=== PATIENT | male | born 1960 | race Hispanic/Latino ===

== ENCOUNTER 2018-09-27 14:26 | Outpatient (CLI) | payer MEDICARE ==
--- NOTE | 2018-09-27 16:08 | RAD ---
ADULT SKELETAL BONE SURVEY: History: Staging of multiple myeloma. FINDINGS: Lateral view skull, AP and lateral views cervical spine, AP and lateral views thoracic spine, AP and lateral views lumbar, AP view upper and lower extremities, hands and feet, as well as AP view pelvis. Images demonstrate no evidence of lucency to suggest osseous masses or lesions. No myelomatous lesion s seen on plain film radiography. IMPRESSION: No obvious evidence of osseous lesions seen on plain film radiography. POS: [facility]
== END 2018-09-27 14:27 | disposition home or self-care (01) ==
LOC: BICRAD 14:26
PROVIDERS: ATTEND Internal Medicine Medical Oncology
DX: D47.2 Monoclonal gammopathy (principal)
CPT/HCPCS: 77075; 80053; 82248; 82728; 83615; 83883; 84100; 84165; 84550; 85046

== ENCOUNTER 2020-11-03 02:48 | Inpatient (IN) | payer MEDICARE ==
[2020-11-03 03:48] LABS: Troponin I 0.119 ng/mL (< 0.028)
[2020-11-03] MEDS ORDERED: Ondansetron ODT 4 MG TAB SL PRN (08:00)
[2020-11-03] MEDS ORDERED: Acetaminophen 325 MG TAB PO PRN (08:00)
[2020-11-03] MEDS ORDERED: Ondansetron PF 4 MG/2 ML Vial IVP PRN (08:00)
[2020-11-03 08:18] VITALS: BMI 26.9
[2020-11-03] MEDS ORDERED: Dextrose 5% in Water 1,000 ML IV PRN (08:42)
[2020-11-03] MEDS ORDERED: Insulin Regular 300 UNITS/3 ML VIAL SC PRN (08:42)
[2020-11-03] MEDS ORDERED: Dextrose 50% Abboject 50 ML SYRINGE SLOW IVP PRN (08:42)
[2020-11-03] MEDS ORDERED: EPOETIN ALFA-EPBX (ESRD) 10,000 UNIT/ML VIAL SC SCH (09:00)
[2020-11-03] MEDS ORDERED: Furosemide 40 MG TAB PO SCH (09:00)
[2020-11-03] MEDS: hydrALAZINE 25 MG TAB PO SCH ×3 (09:46→21:36)
[2020-11-03] MEDS: Aspirin Chewable 81 MG TAB PO SCH (09:46)
[2020-11-03] MEDS: Heparin 5,000 UNITS/ML VIAL SC SCH ×2 (09:46→21:36)
[2020-11-03 11:20] LABS: #Eosinphils 0.2 thou/uL (0.0-0.7); #Lymphocytes 1.2 thou/uL (1.20-3.40); #Neutrophils 8.3 thou/uL (1.40-6.50); %Basophils 0.3 % (0.0-1.0); %Eosinophils 1.7 % (0.0-10.0); %Lymphocytes 10.8 % (21.0-51.0); %Monocytes 9.5 % (0.0-10.0); %Neutrophils 77.7 % (42.0-75.0); Hemoglobin 6.8 g/dL (14.0-18.0); Mean Corpuscular Hemoglobin 27.2 pg (27.0-31.0); Mean Corpuscular Volume 84.9 fL (78.0-98.0); Mean Platelet Volume 8.1 fL (7.4-10.4); Platelet Count 200 thou/uL (130-400); RBC Distribution Width 15.1 % (11.5-14.5); Red Blood Cell (RBC) Count 2.48 mill/uL (4.70-6.10); White Blood Cell (WBC) Count 10.6 thou/uL (4.8-10.8)
[2020-11-03 11:46] LABS: Anion Gap 22 mmol/L (10-20); BUN (Urea Nitrogen) 79 mg/dL (8.4-25.7); Calc. Creatinine Clearance 8 mL/min (70-130); Calcium 8.5 mg/dL (7.8-10.44); Carbon Dioxide 15 mmol/L (23-31); Chloride 101 mmol/L (98-107); Glucose 123 mg/dL (80-115); Magnesium 2.9 mg/dL (1.6-2.6); Potassium 4.3 mmol/L (3.5-5.1); Sodium 134 mmol/L (136-145)
[2020-11-03 12:05] LABS: CKMB 2.7 ng/mL (0-6.6)
[2020-11-03] MEDS: Isosorbide Dinitrate 20 MG TAB PO SCH ×2 (13:08→21:36)
[2020-11-03] MEDS: Furosemide 40 MG/4 ML VIAL SLOW IVP SCH (13:08)
[2020-11-03] MEDS: cloNIDine 0.1 MG TAB PO SCH ×2 (13:11→21:35)
[2020-11-03 17:25] LABS: CKMB 2.4 ng/mL (0-6.6)
[2020-11-03] MEDS ORDERED: Atorvastatin Calcium 40 MG TAB PO SCH (21:00)
[2020-11-04 03:11] LABS: Hep B Core Total Ab Non-Reactive (NonReactive); Hep B Core Total Index 0.06 S/CO (0-0.79)
[2020-11-04 03:12] LABS: HBSAB Concentration Less than 8.00 mIU/mL; HBSAg Index 0.21 S/CO (0-0.99); Hep B Surf AB Non-Reactive (NonReactive); Hep B Surf Ag Non-Reactive S/CO (NonReactive); Hep C IgG Ab Non-Reactive (NonReactive); Hep C Index 0.11 S/CO (0-0.79)
[2020-11-04 03:43] LABS: INR-International Normal Ratio 1.3; Prothrombin Time 16.1 sec (12.0-14.7)
[2020-11-04 03:45] LABS: #Eosinphils 0.3 thou/uL (0.0-0.7); #Lymphocytes 0.7 thou/uL (1.20-3.40); #Monocytes 0.7 thou/uL (0.11-0.59); #Neutrophils 4.7 thou/uL (1.40-6.50); %Basophils 0.7 % (0.0-1.0); %Eosinophils 4.3 % (0.0-10.0); %Lymphocytes 11.2 % (21.0-51.0); %Monocytes 10.3 % (0.0-10.0); %Neutrophils 73.6 % (42.0-75.0); Hemoglobin 5.6 g/dL (14.0-18.0); Mean Corpuscular HGB CONC 32.8 g/dL (32.0-36.0); Mean Corpuscular Hemoglobin 27.9 pg (27.0-31.0); Mean Corpuscular Volume 85.1 fL (78.0-98.0); Mean Platelet Volume 7.6 fL (7.4-10.4); Platelet Count 158 thou/uL (130-400); RBC Distribution Width 14.8 % (11.5-14.5); Red Blood Cell (RBC) Count 2.01 mill/uL (4.70-6.10); White Blood Cell (WBC) Count 6.4 thou/uL (4.8-10.8)
[2020-11-04 03:48] LABS: Anion Gap 21 mmol/L (10-20); BUN (Urea Nitrogen) 86 mg/dL (8.4-25.7); Calc. Creatinine Clearance 7 mL/min (70-130); Calcium 8.2 mg/dL (7.8-10.44); Carbon Dioxide 15 mmol/L (23-31); Chloride 103 mmol/L (98-107); Glucose 85 mg/dL (80-115); Iron 31 ug/dL (65-175); Iron Binding Capacity, Total 218 mcg/dL (261-462); Potassium 4.3 mmol/L (3.5-5.1); Sodium 135 mmol/L (136-145)
[2020-11-04] MEDS ORDERED: Heparin 10,000 UNITS/ 10 ML VIAL ONE (08:33)
[2020-11-04] MEDS ORDERED: NIFEdipine XL 30 MG TAB PO SCH (09:00)
[2020-11-04] MEDS ORDERED: EPOETIN ALFA-EPBX (ESRD) 10,000 UNIT/ML VIAL SC SCH (09:00)
[2020-11-04] MEDS ORDERED: Tuberculin PPD 0.1 ML VIAL I-DERMAL SCH ×2 (10:00→10:30)
[2020-11-04 10:26] LABS: Hemoglobin 6.9 g/dL (14.0-18.0); Platelet Count 155 thou/uL (130-400)
[2020-11-04] MEDS: Aspirin Chewable 81 MG TAB PO SCH (10:41)
[2020-11-04] MEDS: cloNIDine 0.1 MG TAB PO SCH ×3 (10:41→20:21)
[2020-11-04] MEDS: hydrALAZINE 25 MG TAB PO SCH ×3 (10:41→20:22)
[2020-11-04] MEDS: Furosemide 40 MG/4 ML VIAL SLOW IVP SCH ×2 (10:44→17:23)
[2020-11-04] MEDS: Isosorbide Dinitrate 20 MG TAB PO SCH ×3 (10:44→20:21)
[2020-11-04] MEDS: Heparin 5,000 UNITS/ML VIAL SC SCH ×2 (10:47→20:23)
[2020-11-04] MEDS ORDERED: CEFAZOLIN 2 GM in Premix Bag 1 BAG IVPB SCH (13:00)
[2020-11-04] MEDS: EPOETIN ALFA-EPBX (ESRD) 10,000 UNIT/ML VIAL IVP SCH (14:46)
[2020-11-04] MEDS: Atorvastatin Calcium 10 MG TAB PO SCH (20:21)
[2020-11-05 03:37] LABS: #Eosinphils 0.3 thou/uL (0.0-0.7); #Lymphocytes 0.7 thou/uL (1.20-3.40); #Monocytes 0.8 thou/uL (0.11-0.59); #Neutrophils 4.7 thou/uL (1.40-6.50); %Basophils 0.3 % (0.0-1.0); %Eosinophils 4.8 % (0.0-10.0); %Lymphocytes 10.9 % (21.0-51.0); %Monocytes 12.7 % (0.0-10.0); %Neutrophils 71.3 % (42.0-75.0); Hemoglobin 8.5 g/dL (14.0-18.0); Mean Corpuscular HGB CONC 32.4 g/dL (32.0-36.0); Mean Corpuscular Hemoglobin 27.6 pg (27.0-31.0); Mean Corpuscular Volume 85.1 fL (78.0-98.0); Mean Platelet Volume 7.2 fL (7.4-10.4); Platelet Count 140 thou/uL (130-400); RBC Distribution Width 13.7 % (11.5-14.5); Red Blood Cell (RBC) Count 3.06 mill/uL (4.70-6.10); White Blood Cell (WBC) Count 6.5 thou/uL (4.8-10.8)
[2020-11-05 03:56] LABS: Anion Gap 17 mmol/L (10-20); BUN (Urea Nitrogen) 57 mg/dL (8.4-25.7); Calc. Creatinine Clearance 10 mL/min (70-130); Calcium 8.3 mg/dL (7.8-10.44); Carbon Dioxide 22 mmol/L (23-31); Chloride 102 mmol/L (98-107); Glucose 100 mg/dL (80-115); Potassium 3.9 mmol/L (3.5-5.1); Sodium 137 mmol/L (136-145)
[2020-11-05] MEDS ORDERED: Amlodipine 10 MG TAB PO SCH (09:00)
[2020-11-05] MEDS ORDERED: Heparin 10,000 UNITS/ 10 ML VIAL ONE (11:14)
[2020-11-05] MEDS: Furosemide 40 MG/4 ML VIAL SLOW IVP SCH ×2 (12:22)
[2020-11-05] MEDS: cloNIDine 0.1 MG TAB PO SCH ×4 (12:22→21:17)
[2020-11-05] MEDS: Aspirin 81 mg Enteric Coated Tablet PO SCH (12:22)
[2020-11-05] MEDS: hydrALAZINE 25 MG TAB PO SCH ×4 (12:22→21:17)
[2020-11-05] MEDS: Cholecalciferol 1,000 UNITS (25 MCG) TAB PO SCH (12:23)
[2020-11-05] MEDS: Isosorbide Dinitrate 20 MG TAB PO SCH ×4 (12:23→21:17)
[2020-11-05] MEDS: NIFEdipine XL 30 MG TAB PO SCH (12:24)
[2020-11-05] MEDS: Heparin 5,000 UNITS/ML VIAL SC SCH ×2 (12:25→21:18)
[2020-11-05] MEDS: Atorvastatin Calcium 10 MG TAB PO SCH (21:17)
[2020-11-06 04:46] LABS: #Eosinphils 0.4 thou/uL (0.0-0.7); #Lymphocytes 0.9 thou/uL (1.20-3.40); #Monocytes 0.9 thou/uL (0.11-0.59); #Neutrophils 4.1 thou/uL (1.40-6.50); %Basophils 0.5 % (0.0-1.0); %Eosinophils 6.6 % (0.0-10.0); %Lymphocytes 13.3 % (21.0-51.0); %Monocytes 14.8 % (0.0-10.0); %Neutrophils 64.8 % (42.0-75.0); Hemoglobin 9.1 g/dL (14.0-18.0); Mean Corpuscular HGB CONC 33.2 g/dL (32.0-36.0); Mean Corpuscular Hemoglobin 28.4 pg (27.0-31.0); Mean Corpuscular Volume 85.6 fL (78.0-98.0); Mean Platelet Volume 7.1 fL (7.4-10.4); Platelet Count 141 thou/uL (130-400); RBC Distribution Width 13.9 % (11.5-14.5); Red Blood Cell (RBC) Count 3.21 mill/uL (4.70-6.10); White Blood Cell (WBC) Count 6.4 thou/uL (4.8-10.8)
[2020-11-06 05:08] LABS: Anion Gap 16 mmol/L (10-20); BUN (Urea Nitrogen) 37 mg/dL (8.4-25.7); Calc. Creatinine Clearance 13 mL/min (70-130); Calcium 8.6 mg/dL (7.8-10.44); Carbon Dioxide 25 mmol/L (23-31); Chloride 101 mmol/L (98-107); Glucose 93 mg/dL (80-115); Sodium 138 mmol/L (136-145)
[2020-11-06] MEDS: Furosemide 40 MG/4 ML VIAL SLOW IVP SCH ×2 (05:40→15:32)
[2020-11-06] MEDS: cloNIDine 0.1 MG TAB PO SCH ×3 (09:22→20:32)
[2020-11-06] MEDS: Isosorbide Dinitrate 20 MG TAB PO SCH ×3 (09:23→20:32)
[2020-11-06] MEDS: Heparin 5,000 UNITS/ML VIAL SC SCH ×2 (09:23→20:33)
[2020-11-06] MEDS: hydrALAZINE 25 MG TAB PO SCH ×3 (09:23→20:32)
[2020-11-06] MEDS ORDERED: Bupivacaine PF 0.5% 30 ML VIAL ONE (09:30)
[2020-11-06] MEDS ORDERED: Sodium Chloride 0.9% 20 ML ONE (09:30)
[2020-11-06] MEDS ORDERED: Protamine Sulfate 50 MG/5 ML VIAL ONE (09:30)
[2020-11-06] MEDS ORDERED: Ioversol 68 % 50 ML VIAL ONE (09:30)
[2020-11-06] MEDS ORDERED: Lidocaine 2% w/Epinephrine 1:200K 20 ML VIAL ONE (09:30)
[2020-11-06] MEDS ORDERED: Bupivacaine HCl 0.5%/Epinephrine 1:200,000/PF 30 ml Vial ONE (09:31)
[2020-11-06] MEDS ORDERED: Fentanyl 100 MCG/2 ML VIAL ONE (09:32)
[2020-11-06] MEDS ORDERED: Propofol 500 MG/50 ML VIAL ONE (09:33)
[2020-11-06] MEDS ORDERED: Heparin 10,000 UNITS/ 10 ML VIAL ONE (09:34)
[2020-11-06] MEDS ORDERED: Heparin 5,000 UNITS/ML VIAL ONE (09:34)
[2020-11-06] MEDS ORDERED: traMADol HCl 50 MG TAB PO PRN (10:13)
[2020-11-06] MEDS ORDERED: READ PPD TEST SITE PO SCH (11:00)
[2020-11-06] MEDS: Aspirin 81 mg Enteric Coated Tablet PO SCH (12:19)
[2020-11-06] MEDS: NIFEdipine XL 30 MG TAB PO SCH (12:19)
[2020-11-06] MEDS: Acetaminophen 500 MG TAB PO PRN (12:20)
[2020-11-06] MEDS: Cholecalciferol 1,000 UNITS (25 MCG) TAB PO SCH (12:21)
[2020-11-06] MEDS ORDERED: ceFAZolin 1 GM/D5W 1 GM in Premix Bag 1 BAG IVPB SCH (12:30)
[2020-11-06] MEDS ORDERED: Tuberculin PPD 0.1 ML VIAL I-DERMAL SCH (13:00)
[2020-11-06] MEDS: EPOETIN ALFA-EPBX (ESRD) 10,000 UNIT/ML VIAL IVP SCH (13:18)
[2020-11-06] MEDS: Atorvastatin Calcium 10 MG TAB PO SCH (20:32)
[2020-11-07 05:00] LABS: #Eosinphils 0.5 thou/uL (0.0-0.7); #Lymphocytes 0.8 thou/uL (1.20-3.40); #Monocytes 0.8 thou/uL (0.11-0.59); #Neutrophils 4.5 thou/uL (1.40-6.50); %Basophils 0.3 % (0.0-1.0); %Eosinophils 7.1 % (0.0-10.0); %Lymphocytes 12.1 % (21.0-51.0); %Monocytes 11.8 % (0.0-10.0); %Neutrophils 68.7 % (42.0-75.0); Hemoglobin 8.9 g/dL (14.0-18.0); Mean Corpuscular HGB CONC 32.4 g/dL (32.0-36.0); Mean Corpuscular Hemoglobin 27.8 pg (27.0-31.0); Mean Platelet Volume 7.6 fL (7.4-10.4); Platelet Count 159 thou/uL (130-400); RBC Distribution Width 13.7 % (11.5-14.5); Red Blood Cell (RBC) Count 3.19 mill/uL (4.70-6.10); White Blood Cell (WBC) Count 6.5 thou/uL (4.8-10.8)
[2020-11-07 05:21] LABS: Anion Gap 17 mmol/L (10-20); BUN (Urea Nitrogen) 54 mg/dL (8.4-25.7); Calc. Creatinine Clearance 9 mL/min (70-130); Calcium 8.4 mg/dL (7.8-10.44); Carbon Dioxide 24 mmol/L (23-31); Chloride 101 mmol/L (98-107); Glucose 96 mg/dL (80-115); Potassium 4.3 mmol/L (3.5-5.1); Sodium 138 mmol/L (136-145)
[2020-11-07] MEDS: Furosemide 40 MG/4 ML VIAL SLOW IVP SCH ×2 (05:37→15:30)
[2020-11-07] MEDS: Heparin 5,000 UNITS/ML VIAL SC SCH ×2 (10:14→20:28)
[2020-11-07] MEDS: cloNIDine 0.1 MG TAB PO SCH ×3 (10:14→20:27)
[2020-11-07] MEDS: hydrALAZINE 25 MG TAB PO SCH ×3 (10:14→20:27)
[2020-11-07] MEDS: Isosorbide Dinitrate 20 MG TAB PO SCH ×3 (10:15→20:28)
[2020-11-07] MEDS ORDERED: Heparin 10,000 UNITS/ 10 ML VIAL ONE (12:25)
[2020-11-07] MEDS: NIFEdipine XL 30 MG TAB PO SCH (13:45)
[2020-11-07] MEDS: Aspirin 81 mg Enteric Coated Tablet PO SCH (13:45)
[2020-11-07] MEDS: Cholecalciferol 1,000 UNITS (25 MCG) TAB PO SCH (13:46)
[2020-11-07] MEDS: Acetaminophen 500 MG TAB PO PRN ×2 (13:51→20:28)
[2020-11-07] MEDS: Atorvastatin Calcium 10 MG TAB PO SCH (20:28)
[2020-11-08] MEDS: Furosemide 40 MG/4 ML VIAL SLOW IVP SCH ×2 (06:02→15:33)
[2020-11-08 06:56] LABS: #Eosinphils 0.6 thou/uL (0.0-0.7); #Lymphocytes 0.6 thou/uL (1.20-3.40); #Monocytes 0.8 thou/uL (0.11-0.59); #Neutrophils 3.5 thou/uL (1.40-6.50); %Basophils 0.5 % (0.0-1.0); %Eosinophils 10.2 % (0.0-10.0); %Lymphocytes 11.5 % (21.0-51.0); %Monocytes 14.4 % (0.0-10.0); %Neutrophils 63.4 % (42.0-75.0); Hemoglobin 10.2 g/dL (14.0-18.0); Mean Corpuscular HGB CONC 32.4 g/dL (32.0-36.0); Mean Corpuscular Hemoglobin 28.1 pg (27.0-31.0); Mean Corpuscular Volume 86.5 fL (78.0-98.0); Mean Platelet Volume 7.4 fL (7.4-10.4); Platelet Count 150 thou/uL (130-400); RBC Distribution Width 14.1 % (11.5-14.5); Red Blood Cell (RBC) Count 3.64 mill/uL (4.70-6.10); White Blood Cell (WBC) Count 5.5 thou/uL (4.8-10.8)
[2020-11-08 07:15] LABS: Phosphorus 6.3 mg/dL (2.3-4.7)
[2020-11-08 07:17] LABS: Anion Gap 18 mmol/L (10-20); BUN (Urea Nitrogen) 40 mg/dL (8.4-25.7); Calc. Creatinine Clearance 10 mL/min (70-130); Calcium 8.9 mg/dL (7.8-10.44); Carbon Dioxide 25 mmol/L (23-31); Chloride 98 mmol/L (98-107); Glucose 82 mg/dL (80-115); Potassium 4.2 mmol/L (3.5-5.1); Sodium 137 mmol/L (136-145)
[2020-11-08] MEDS: Cholecalciferol 1,000 UNITS (25 MCG) TAB PO SCH (09:07)
[2020-11-08] MEDS: Aspirin 81 mg Enteric Coated Tablet PO SCH (09:07)
[2020-11-08] MEDS: Heparin 5,000 UNITS/ML VIAL SC SCH ×2 (09:07→21:18)
[2020-11-08] MEDS: cloNIDine 0.1 MG TAB PO SCH ×3 (09:08→21:17)
[2020-11-08] MEDS: NIFEdipine XL 30 MG TAB PO SCH (09:08)
[2020-11-08] MEDS: hydrALAZINE 25 MG TAB PO SCH ×3 (09:08→21:17)
[2020-11-08] MEDS: Isosorbide Dinitrate 20 MG TAB PO SCH ×3 (09:08→21:17)
[2020-11-08] MEDS: READ PPD TEST SITE PO SCH (11:40)
[2020-11-08] MEDS: Atorvastatin Calcium 10 MG TAB PO SCH (21:17)
[2020-11-09 05:12] LABS: Hemoglobin 9.1 g/dL (14.0-18.0); Mean Corpuscular HGB CONC 33.9 g/dL (32.0-36.0); Mean Corpuscular Hemoglobin 29.4 pg (27.0-31.0); Mean Corpuscular Volume 86.8 fL (78.0-98.0); Mean Platelet Volume 7.5 fL (7.4-10.4); Platelet Count 152 thou/uL (130-400); RBC Distribution Width 14.4 % (11.5-14.5); Red Blood Cell (RBC) Count 3.11 mill/uL (4.70-6.10); White Blood Cell (WBC) Count 5.3 thou/uL (4.8-10.8)
[2020-11-09 05:23] LABS: Anion Gap 19 mmol/L (10-20); BUN (Urea Nitrogen) 60 mg/dL (8.4-25.7); Calc. Creatinine Clearance 8 mL/min (70-130); Calcium 8.8 mg/dL (7.8-10.44); Carbon Dioxide 23 mmol/L (23-31); Chloride 96 mmol/L (98-107); Glucose 96 mg/dL (80-115); Magnesium 2.4 mg/dL (1.6-2.6); Phosphorus 7.5 mg/dL (2.3-4.7); Potassium 4.3 mmol/L (3.5-5.1); Sodium 134 mmol/L (136-145)
[2020-11-09 05:28] LABS: Eosinophils 15 % (0-10); Lymphocytes 7 % (21-51); MDiff Complete? YES; Monocytes 15 % (0-10); Neutrophil 63 % (42-75); Platelet Morphology Comment Appears Adequate
[2020-11-09] MEDS: Furosemide 40 MG/4 ML VIAL SLOW IVP SCH ×2 (06:21→13:50)
[2020-11-09] MEDS: Cholecalciferol 1,000 UNITS (25 MCG) TAB PO SCH (08:27)
[2020-11-09] MEDS: NIFEdipine XL 30 MG TAB PO SCH (08:27)
[2020-11-09] MEDS: hydrALAZINE 25 MG TAB PO SCH ×3 (08:27→20:35)
[2020-11-09] MEDS: Aspirin 81 mg Enteric Coated Tablet PO SCH (08:28)
[2020-11-09] MEDS: Isosorbide Dinitrate 20 MG TAB PO SCH ×3 (08:28→20:35)
[2020-11-09] MEDS: Heparin 5,000 UNITS/ML VIAL SC SCH ×2 (08:28→20:36)
[2020-11-09] MEDS: cloNIDine 0.1 MG TAB PO SCH ×3 (08:28→20:35)
[2020-11-09] MEDS: EPOETIN ALFA-EPBX (ESRD) 10,000 UNIT/ML VIAL IVP SCH (10:54)
[2020-11-09] MEDS ORDERED: traMADol HCl 50 MG TAB PO PRN (11:43)
[2020-11-09] MEDS: READ PPD TEST SITE PO SCH (14:20)
[2020-11-09] MEDS: Atorvastatin Calcium 10 MG TAB PO SCH (20:32)
[2020-11-09] MEDS: Acetaminophen 500 MG TAB PO PRN (20:34)
[2020-11-10] MEDS: Furosemide 40 MG/4 ML VIAL SLOW IVP SCH ×2 (05:18→14:54)
[2020-11-10 05:29] LABS: #Basophils 0.1 thou/uL (0.0-0.2); #Eosinphils 0.5 thou/uL (0.0-0.7); #Lymphocytes 0.8 thou/uL (1.20-3.40); #Monocytes 0.6 thou/uL (0.11-0.59); #Neutrophils 2.8 thou/uL (1.40-6.50); %Basophils 1.1 % (0.0-1.0); %Eosinophils 10.1 % (0.0-10.0); %Lymphocytes 17.4 % (21.0-51.0); %Monocytes 11.7 % (0.0-10.0); %Neutrophils 59.8 % (42.0-75.0); Hemoglobin 8.7 g/dL (14.0-18.0); Mean Corpuscular Hemoglobin 28.6 pg (27.0-31.0); Mean Corpuscular Volume 86.6 fL (78.0-98.0); Mean Platelet Volume 7.2 fL (7.4-10.4); Platelet Count 140 thou/uL (130-400); RBC Distribution Width 14.2 % (11.5-14.5); Red Blood Cell (RBC) Count 3.02 mill/uL (4.70-6.10); White Blood Cell (WBC) Count 4.7 thou/uL (4.8-10.8)
[2020-11-10 05:51] LABS: Anion Gap 22 mmol/L (10-20); BUN (Urea Nitrogen) 79 mg/dL (8.4-25.7); Calc. Creatinine Clearance 7 mL/min (70-130); Calcium 8.7 mg/dL (7.8-10.44); Carbon Dioxide 19 mmol/L (23-31); Chloride 97 mmol/L (98-107); Glucose 84 mg/dL (80-115); Potassium 4.1 mmol/L (3.5-5.1); Sodium 134 mmol/L (136-145)
[2020-11-10] MEDS ORDERED: EPOETIN ALFA-EPBX (ESRD) 10,000 UNIT/ML VIAL IVP SCH (09:00)
[2020-11-10] MEDS: hydrALAZINE 25 MG TAB PO SCH ×2 (12:24→14:54)
[2020-11-10] MEDS: cloNIDine 0.1 MG TAB PO SCH ×2 (12:24→14:54)
[2020-11-10] MEDS: Isosorbide Dinitrate 20 MG TAB PO SCH ×2 (12:24→14:55)
[2020-11-10] MEDS ORDERED: Heparin 10,000 UNITS/ 10 ML VIAL ONE (12:30)
[2020-11-10] MEDS: Heparin 5,000 UNITS/ML VIAL SC SCH (12:56)
[2020-11-10] MEDS: Cholecalciferol 1,000 UNITS (25 MCG) TAB PO SCH (12:57)
[2020-11-10] MEDS: Aspirin 81 mg Enteric Coated Tablet PO SCH (12:57)
[2020-11-10] MEDS: NIFEdipine XL 30 MG TAB PO SCH (12:58)
[2020-11-10 15:22] VITALS: BP 147/52; TEMP 97.7
== END 2020-11-10 18:30 | disposition home or self-care (01) | DRG 264 ==
LOC: ERS 02:48 → IMCU/EMU 04:54 → 2NO 11-05 18:19
PROVIDERS: ADMIT Student in an Organized Health Care Education/Training Program; ATTEND Internal Medicine
PROC: 30233N1 Transfusion of Nonautologous Red Blood Cells into Peripheral Vein, Percutaneous Approach (ICD-10-PCS; 2020-11-03)
PROC: 5A09457 Assistance with Respiratory Ventilation, 24-96 Consecutive Hours, Continuous Positive Airway Pressure (ICD-10-PCS; 2020-11-03)
PROC: 06HM33Z Insertion of Infusion Device into Right Femoral Vein, Percutaneous Approach (ICD-10-PCS; 2020-11-05)
PROC: 5A1D70Z Performance of Urinary Filtration, Intermittent, Less than 6 Hours Per Day (ICD-10-PCS; 2020-11-05)
PROC: 031C3ZF Bypass Left Radial Artery to Lower Arm Vein, Percutaneous Approach (ICD-10-PCS; principal; 2020-11-06)
PROC: 0JH63XZ Insertion of Tunneled Vascular Access Device into Chest Subcutaneous Tissue and Fascia, Percutaneous Approach (ICD-10-PCS; 2020-11-06)
PROC: 05HN33Z Insertion of Infusion Device into Left Internal Jugular Vein, Percutaneous Approach (ICD-10-PCS; 2020-11-06)
PROC: B5141ZA Fluoroscopy of Left Jugular Veins using Low Osmolar Contrast, Guidance (ICD-10-PCS; 2020-11-06)
DX: I13.2 Hypertensive heart and chronic kidney disease with heart failure and with stage 5 chronic kidney disease, or end stage renal disease (principal); J96.01 Acute respiratory failure with hypoxia; I50.23 Acute on chronic systolic (congestive) heart failure; N18.6 End stage renal disease; E87.1 Hypo-osmolality and hyponatremia; E87.2 Acidosis; N17.9 Acute kidney failure, unspecified; E78.5 Hyperlipidemia, unspecified; Z79.82 Long term (current) use of aspirin; E11.22 Type 2 diabetes mellitus with diabetic chronic kidney disease; I25.10 Atherosclerotic heart disease of native coronary artery without angina pectoris; Z83.3 Family history of diabetes mellitus; Z82.49 Family history of ischemic heart disease and other diseases of the circulatory system; D63.1 Anemia in chronic kidney disease
CPT/HCPCS: 36415; 36416; 36430; 71045; 71046; 80048; 82553; 82728; 83540; 83550; 83735; 84100; 84443; 85025; 85610; 85730; 86580; 86704; 86706; 86803; 86850; 86900; 86901; 87340; 90935; 93306; 93798; 93970; 94660; C1751; C1752; G0257; J0690; J1642; J1644; J1940; J2704; J2720; J3010; P9016; Q5105; Q9967; S0020

== ENCOUNTER 2025-06-02 13:54 | Outpatient (CLI) | payer MEDICARE, MEDICAID | END 2025-06-02 13:55 | disposition home or self-care (01) | LOC: BICRAD 13:54 | PROVIDERS: ATTEND Internal Medicine Nephrology | DX: N18.6 End stage renal disease (principal) | CPT/HCPCS: 71046 ==